=== PATIENT | female | born 1965 | race Caucasian/White ===

== ENCOUNTER 2018-05-18 18:02 | Emergency (ER) | payer MEDICARE, SELFPAY ==
[2018-05-18 18:04] VITALS: BP 147/23; PULSE 0; RESP 16; O2SAT 76; BMI 41.5
--- NOTE | 2018-05-18 18:17 | ED.VISSUMM ---
- ER Visit Summary Date of Service: 05/18/18 Chief Complaint: [Cardiac arrest] History of Present Illness: The patient is a 53 F [presents the emergency department in cardiac arrest from [facility] via EMS. EMS was called as patient had not been feeling well throughout the day today per nurse that is with the patient. 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 Patient initially was found to be in ventricular fibrillation and was defibrillated and was given a milligram of epinephrine down the ET tube after she was intubated in the field. Patient had CPR started and was defibrillated a second time for V. fib. Patient does have a history of chronic renal failure and is on dialysis which she is scheduled to have tomorrow. Patient has a history of A. fib and is on digoxin and Coumadin. Patient has a history of diabetes, hypertension, and high cholesterol. Patient has history of morbid obesity.] Physical Examination: [HEENT-patient is atraumatic and head is cyanotic. Pupils are fixed and dilated 6 mm. Cardia vascular-no cardiac heart sounds auscultated. No pulses palpated Lungs-no spontaneous respirations. When bagged patient has breath sounds bilaterally. Abdomen-patient is morbidly obese Extremities-intact ?4 Skin exam-there is pallor and cyanosis noted.] Test Results: [None indicated initially] Emergency Department Course and Treatment: [Patient had continued CPR and an IV line was established. Patient was given 1 epinephrine for a systolic rhythm. Patient also given an amp of sodium bicarb and this was circulated. On repeat evaluation her downtime is over 20 minutes and using ultrasound I noted that she had no cardiac activity. Time of was called at 18:08.] Treatment Plan: [] Disposition: [] Impression: [Cardiac arrest-] This note was generated with [employer] dictation software. It may contain incorrect words, spelling, and punctuation that were not noted in review of the chart prior to signing ED Disposition - Plan for ED Patient: Chief Complaint: Unresponsive Referrals: Lacho An MD [Primary Care Provider] -
--- NOTE | 2018-05-18 18:22 | ED.DCSUM_ITS ---
- ER Visit Summary Date of Service: 05/18/18 Chief Complaint: [Cardiac arrest] History of Present Illness: The patient is a 53 F [presents the emergency department in cardiac arrest from [facility] via EMS. EMS was called as patient had not been feeling well throughout the day today per nurse that is with the patient. 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 Patient initially was found to be in ventricular fibrillation and was defibrillated and was given a milligram of epinephrine down the ET tube after she was intubated in the field. Patient had CPR started and was defibrillated a second time for V. fib. Patient does have a history of chronic renal failure and is on dialysis which she is scheduled to have tomorrow. Patient has a history of A. fib and is on digoxin and Coumadin. Patient has a history of diabetes, hypertension, and high cholesterol. Patient has history of morbid obesity.] Physical Examination: [HEENT-patient is atraumatic and head is cyanotic. Pupils are fixed and dilated 6 mm. Cardia vascular-no cardiac heart sounds auscultated. No pulses palpated Lungs-no spontaneous respirations. When bagged patient has breath sounds bilaterally. Abdomen-patient is morbidly obese Extremities-intact ?4 Skin exam-there is pallor and cyanosis noted.] Test Results: [None indicated initially] Emergency Department Course and Treatment: [Patient had continued CPR and an IV line was established. Patient was given 1 epinephrine for a systolic rhythm. Patient also given an amp of sodium bicarb and this was circulated. On repeat evaluation her downtime is over 20 minutes and using ultrasound I noted that she had no cardiac activity. Time of was called at 18:08.] Treatment Plan: [] Disposition: [] Impression: [Cardiac arrest-] This note was generated with [employer] dictation software. It may contain incorrect words, spelling, and punctuation that were not noted in review of the chart prior to signing ED Disposition - Plan for ED Patient: Chief Complaint: Unresponsive Referrals: Lacho An MD [Primary Care Provider] -
--- NOTE | 2018-05-18 18:31 | ED.RN ---
SEE CODE SHEET.
--- NOTE | 2018-05-18 19:36 | ED.RN ---
SPOKE WITH PATIENTS SISTER JOSELYN BAHENA. SHE WOULD LIKE [facility] TO TAKE CARE OF PTS BURIAL
== END 2018-05-18 20:36 ==
PROVIDERS: Emergency Provider Emergency Medicine; Family Provider Family Medicine; PCP Family Medicine
DX: I46.9 Cardiac arrest, cause unspecified (principal); I12.9 Hypertensive chronic kidney disease with stage 1 through stage 4 chronic kidney disease, or unspecified chronic kidney disease; E11.22 Type 2 diabetes mellitus with diabetic chronic kidney disease; N18.9 Chronic kidney disease, unspecified; Z99.2 Dependence on renal dialysis; I48.91 Unspecified atrial fibrillation; E66.01 Morbid (severe) obesity due to excess calories; Z79.01 Long term (current) use of anticoagulants; Z79.899 Other long term (current) drug therapy
CPT/HCPCS: 92950; 99281; J7030